=== PATIENT | male | born 1960 | race Caucasian/White ===

== ENCOUNTER 2017-06-08 13:48 | Emergency (ER) | payer MEDICARE ==
[2017-06-08] MEDS ORDERED: Ketorolac Tromethamine 30 MG/ML VIAL ONE (14:27)
== END 2017-06-08 14:55 | disposition home or self-care (01) ==
LOC: NAV ERS 13:48
DX: S16.1XXA Strain of muscle, fascia and tendon at neck level, initial encounter (principal); R03.0 Elevated blood-pressure reading, without diagnosis of hypertension; I25.2 Old myocardial infarction; Z87.891 Personal history of nicotine dependence; X58.XXXA Exposure to other specified factors, initial encounter
CPT/HCPCS: 96372; J1885

== ENCOUNTER 2018-08-21 10:25 | Outpatient (CLI) | payer MEDICARE ==
--- NOTE | 2018-08-21 11:59 | RAD ---
LUMBOSACRAL SPINE THREE VIEWS: HISTORY: Low back pain and right-sided sciatica. COMPARISON: None. FINDINGS: Three views of the lumbosacral spine show normal height and alignment of the vertebral bodies and int ervertebral disks without fracture or subluxation. Moderate osteophytes are seen throughout the lumb ar spine. Posterior facet arthrosis is seen in the lower lumbosacral spine. Vascular calcifications are seen in the aorta. IMPRESSION: Moderate degenerative changes of the lumbar spine without acute osseous abnormality. POS: [facility]
--- NOTE | 2018-08-21 12:12 | RAD ---
SACRUM AND COCCYX 3 VIEWS: Date: 08/21/18 HISTORY: Sacral pain. FINDINGS: Sacral ala intact. Mild osteophytosis of the sacroiliac joints. No aggressive osseous erosions or fra ctures are apparent. IMPRESSION: Degenerative changes lumbar spine and sacroiliac joints. No acute osseous abnormalities are demonstra marge. POS: [facility]
== END 2018-08-21 10:26 | disposition home or self-care (01) ==
LOC: NAV SJFMSP 10:25 → NAV RAD 10:26
PROVIDERS: ATTEND Nurse Practitioner Adult Health
DX: M54.41 Lumbago with sciatica, right side (principal); M47.816 Spondylosis without myelopathy or radiculopathy, lumbar region; M53.3 Sacrococcygeal disorders, not elsewhere classified
CPT/HCPCS: 72100; 72220

== ENCOUNTER 2019-06-10 08:34 | Emergency (ER) | payer MEDICARE ==
[2019-06-10] MEDS ORDERED: methylPREDNISolone Sod Succ/PF 125 MG/2 ML VIAL ONE (09:16)
== END 2019-06-10 09:35 | disposition home or self-care (01) ==
LOC: NAV ERS 08:34
DX: M54.12 Radiculopathy, cervical region (principal); E78.5 Hyperlipidemia, unspecified; I49.9 Cardiac arrhythmia, unspecified; I25.2 Old myocardial infarction; Z87.891 Personal history of nicotine dependence; Z79.82 Long term (current) use of aspirin; Z79.899 Other long term (current) drug therapy
CPT/HCPCS: 96372; 99283; J2930

== ENCOUNTER 2020-11-18 11:23 | Outpatient (CLI) | payer MEDICARE | END 2020-11-18 11:24 | disposition home or self-care (01) | LOC: NAV RAD 11:23 | PROVIDERS: ATTEND Family Medicine | DX: M72.2 Plantar fascial fibromatosis (principal); M19.071 Primary osteoarthritis, right ankle and foot; Z98.890 Other specified postprocedural states ==

== ENCOUNTER 2021-11-23 08:47 | Inpatient (IN) | payer MEDICARE ==
[2021-11-23 09:58] LABS: #Basophils 0.1 thou/uL (0.0-0.2); #Eosinphils 0.2 thou/uL (0.0-0.7); #Lymphocytes 1.4 thou/uL (1.20-3.40); %Basophils 1.4 % (0.0-1.0); %Eosinophils 2.2 % (0.0-10.0); %Lymphocytes 14.6 % (21.0-51.0); %Neutrophils 71.9 % (42.0-75.0); Hemoglobin 12.7 g/dL (14.0-18.0); Mean Corpuscular HGB CONC 31.3 g/dL (32.0-36.0); Mean Corpuscular Hemoglobin 28.6 pg (27.0-31.0); Mean Corpuscular Volume 91.3 fL (78.0-98.0); Mean Platelet Volume 8.4 fL (7.4-10.4); Platelet Count 242 thou/uL (130-400); RBC Distribution Width 13.4 % (11.5-14.5); Red Blood Cell (RBC) Count 4.44 mill/uL (4.70-6.10); White Blood Cell (WBC) Count 9.8 thou/uL (4.8-10.8)
[2021-11-23 10:10] LABS: ALT (SGPT) 27 U/L (8-55); AST (SGOT) 22 U/L (5-34); Alkaline Phosphatase 69 U/L (40-110); Anion Gap 17 mmol/L (10-20); BUN (Urea Nitrogen) 14 mg/dL (8.4-25.7); Bilirubin, Total 0.5 mg/dL (0.2-1.2); Calc. Creatinine Clearance 0 mL/min (70-130); Calcium 9.6 mg/dL (7.8-10.44); Carbon Dioxide 21 mmol/L (23-31); Chloride 106 mmol/L (98-107); Globulin 3.5 g/dL (2.4-3.5); Glucose 96 mg/dL (80-115); Potassium 4.4 mmol/L (3.5-5.1); Protein, Total 7.5 g/dL (5.8-8.1); Sodium 140 mmol/L (136-145)
[2021-11-23] MEDS ORDERED: Cefepime 2 GM VIAL ONE (11:20)
[2021-11-23] MEDS ORDERED: Sodium Chloride 0.9% 100 ML ONE (11:21)
[2021-11-23] MEDS ORDERED: Sodium Chloride 0.9% 500 ML ONE (11:21)
[2021-11-23 12:59] LABS: SARS-CoV-2 NAA Rapid Test Not Detected (NotDetected)
[2021-11-23 14:29] VITALS: BMI 43.4
[2021-11-23] MEDS ORDERED: Acetaminophen 325 MG TAB PO PRN (15:15)
[2021-11-23] MEDS ORDERED: Ondansetron PF 4 MG/2 ML Vial IVP PRN (15:15)
[2021-11-23] MEDS ORDERED: Ondansetron ODT 4 MG TAB SL PRN (15:15)
[2021-11-23] MEDS ORDERED: Bisacodyl 5 MG TAB PO PRN (15:53)
[2021-11-23] MEDS ORDERED: Calcium Carbonate 500 MG ChewTAB PO PRN (15:53)
[2021-11-23] MEDS ORDERED: Loperamide HCl 2 MG CAP PO PRN ×2 (15:53)
[2021-11-23] MEDS ORDERED: Guaifenesin DM 100-10/5 ML UDCUP PO PRN (15:53)
[2021-11-23] MEDS ORDERED: Bisacodyl 10 MG SUPP PR PRN (15:53)
[2021-11-23] MEDS ORDERED: Senokot S 8.6-50 MG TAB PO PRN (15:53)
[2021-11-23] MEDS ORDERED: Sodium Chloride 0.65% Nasal 44 ML BOT EA NARE PRN (15:56)
[2021-11-23] MEDS ORDERED: hydrOXYzine 25 MG TAB PO PRN (15:56)
[2021-11-23] MEDS ORDERED: Cepastat Lozenges 1 LOZ PO PRN (15:56)
[2021-11-23] MEDS ORDERED: Ventolin HFA Inhaler 60 PUFF INHALER INH PRN (15:58)
[2021-11-23] MEDS: ALPRAZolam 0.25 MG TAB PO SCH (20:13)
[2021-11-23] MEDS: HYDROcodone/Acetaminophen 5/325 mg Tablet PO PRN ×2 (20:13→23:52)
[2021-11-23] MEDS: Famotidine 20 MG TAB PO SCH (20:13)
[2021-11-23] MEDS: Vancomycin HCl 1 GM in Sodium Chloride 0.9% 250 ML 250 ML IVPB SCH (20:59)
[2021-11-23] MEDS: Vancomycin HCl 750 MG in Sodium Chloride 0.9% 250 ML 250 ML IVPB SCH (22:06)
[2021-11-23] MEDS ORDERED: Sodium Chloride 0.9% 0 ML ONE (23:09)
[2021-11-23] MEDS ORDERED: Sodium Chloride 0.9% 20 ML ONE (23:10)
[2021-11-23] MEDS: Cefepime 2 GM in Sodium Chloride 0.9% 100 ML IVPB SCH (23:17)
[2021-11-23] MEDS: Acetaminophen 325 MG TAB PO PRN (23:18)
[2021-11-24] MEDS: Acetaminophen 325 MG TAB PO PRN ×2 (03:59→14:27)
[2021-11-24 06:05] LABS: #Basophils 0.1 thou/uL (0.0-0.2); #Eosinphils 0.3 thou/uL (0.0-0.7); #Lymphocytes 1.4 thou/uL (1.20-3.40); #Monocytes 0.8 thou/uL (0.11-0.59); #Neutrophils 6.1 thou/uL (1.40-6.50); %Basophils 1.3 % (0.0-1.0); %Eosinophils 3.6 % (0.0-10.0); %Lymphocytes 16.2 % (21.0-51.0); %Monocytes 8.7 % (0.0-10.0); %Neutrophils 70.2 % (42.0-75.0); Hemoglobin 12.3 g/dL (14.0-18.0); Mean Corpuscular HGB CONC 31.3 g/dL (32.0-36.0); Mean Corpuscular Hemoglobin 28.7 pg (27.0-31.0); Mean Corpuscular Volume 91.8 fL (78.0-98.0); Mean Platelet Volume 8.3 fL (7.4-10.4); Platelet Count 241 thou/uL (130-400); RBC Distribution Width 13.9 % (11.5-14.5); Red Blood Cell (RBC) Count 4.28 mill/uL (4.70-6.10); White Blood Cell (WBC) Count 8.7 thou/uL (4.8-10.8)
[2021-11-24 06:09] LABS: ALT (SGPT) 25 U/L (8-55); AST (SGOT) 18 U/L (5-34); Albumin 3.7 g/dL (3.4-4.8); Alkaline Phosphatase 61 U/L (40-110); Anion Gap 15 mmol/L (10-20); BUN (Urea Nitrogen) 15 mg/dL (8.4-25.7); Bilirubin, Total 0.4 mg/dL (0.2-1.2); Calc. Creatinine Clearance 176 mL/min (70-130); Calcium 9.2 mg/dL (7.8-10.44); Carbon Dioxide 25 mmol/L (23-31); Chloride 106 mmol/L (98-107); Globulin 3.2 g/dL (2.4-3.5); Glucose 95 mg/dL (80-115); Potassium 4.5 mmol/L (3.5-5.1); Protein, Total 6.9 g/dL (5.8-8.1); Sodium 141 mmol/L (136-145)
[2021-11-24] MEDS: HYDROcodone/Acetaminophen 5/325 mg Tablet PO PRN ×3 (08:25→20:18)
[2021-11-24] MEDS: Ezetimibe 10 MG TAB PO SCH (08:30)
[2021-11-24] MEDS: Famotidine 20 MG TAB PO SCH ×2 (08:30→20:28)
[2021-11-24] MEDS: Ascorbic Acid 500 mg Chewable Tablet PO SCH (08:30)
[2021-11-24] MEDS: Cholecalciferol 1,000 UNITS (25 MCG) TAB PO SCH (08:30)
[2021-11-24] MEDS: Enoxaparin Sodium 40 MG/0.4 ML SYRINGE SC SCH (08:33)
[2021-11-24] MEDS: Vancomycin HCl 1 GM in Sodium Chloride 0.9% 250 ML 250 ML IVPB SCH ×2 (09:46→21:54)
[2021-11-24] MEDS: Vancomycin HCl 750 MG in Sodium Chloride 0.9% 250 ML 250 ML IVPB SCH ×2 (11:02→22:44)
[2021-11-24] MEDS: Cefepime 2 GM in Sodium Chloride 0.9% 100 ML IVPB SCH ×2 (12:10→23:53)
[2021-11-24] MEDS: ALPRAZolam 0.25 MG TAB PO SCH (20:16)
[2021-11-24] MEDS ORDERED: Famotidine 20 MG TAB ONE (20:45)
[2021-11-24 21:45] LABS: Vancomycin, Trough 17.7 ug/mL
[2021-11-25 06:33] LABS: ALT (SGPT) 27 U/L (8-55); AST (SGOT) 19 U/L (5-34); Alkaline Phosphatase 66 U/L (40-110); Anion Gap 16 mmol/L (10-20); BUN (Urea Nitrogen) 13 mg/dL (8.4-25.7); Bilirubin, Total 0.4 mg/dL (0.2-1.2); Calc. Creatinine Clearance 170 mL/min (70-130); Calcium 9.8 mg/dL (7.8-10.44); Carbon Dioxide 26 mmol/L (23-31); Chloride 104 mmol/L (98-107); Globulin 3.7 g/dL (2.4-3.5); Glucose 98 mg/dL (80-115); Potassium 4.4 mmol/L (3.5-5.1); Protein, Total 7.7 g/dL (5.8-8.1)
[2021-11-25 06:47] LABS: #Basophils 0.1 thou/uL (0.0-0.2); #Eosinphils 0.4 thou/uL (0.0-0.7); #Lymphocytes 1.5 thou/uL (1.20-3.40); #Monocytes 0.7 thou/uL (0.11-0.59); #Neutrophils 6.7 thou/uL (1.40-6.50); %Basophils 1.6 % (0.0-1.0); %Eosinophils 3.8 % (0.0-10.0); %Lymphocytes 16.2 % (21.0-51.0); %Monocytes 7.2 % (0.0-10.0); %Neutrophils 71.3 % (42.0-75.0); Hemoglobin 13.4 g/dL (14.0-18.0); Mean Corpuscular HGB CONC 30.8 g/dL (32.0-36.0); Mean Corpuscular Hemoglobin 28.4 pg (27.0-31.0); Platelet Count 299 thou/uL (130-400); RBC Distribution Width 13.7 % (11.5-14.5); Red Blood Cell (RBC) Count 4.74 mill/uL (4.70-6.10); White Blood Cell (WBC) Count 9.4 thou/uL (4.8-10.8)
[2021-11-25 06:50] LABS: Sodium 142 mmol/L (136-145)
[2021-11-25] MEDS: Enoxaparin Sodium 40 MG/0.4 ML SYRINGE SC SCH (08:06)
[2021-11-25] MEDS: Ascorbic Acid 500 mg Chewable Tablet PO SCH (08:07)
[2021-11-25] MEDS: HYDROcodone/Acetaminophen 5/325 mg Tablet PO PRN ×4 (08:07→21:19)
[2021-11-25] MEDS: Ezetimibe 10 MG TAB PO SCH (08:07)
[2021-11-25] MEDS: Cholecalciferol 1,000 UNITS (25 MCG) TAB PO SCH (08:07)
[2021-11-25] MEDS: Famotidine 20 MG TAB PO SCH ×2 (08:08→20:40)
[2021-11-25] MEDS: Vancomycin HCl 1 GM in Sodium Chloride 0.9% 250 ML 250 ML IVPB SCH ×2 (08:48→21:19)
[2021-11-25] MEDS: Vancomycin HCl 750 MG in Sodium Chloride 0.9% 250 ML 250 ML IVPB SCH ×2 (09:52→21:20)
[2021-11-25] MEDS: Cefepime 2 GM in Sodium Chloride 0.9% 100 ML IVPB SCH ×2 (10:51→23:33)
[2021-11-25] MEDS: ALPRAZolam 0.25 MG TAB PO SCH (20:41)
[2021-11-26] MEDS: HYDROcodone/Acetaminophen 5/325 mg Tablet PO PRN ×3 (04:54→20:23)
[2021-11-26 06:06] LABS: #Basophils 0.1 thou/uL (0.0-0.2); #Eosinphils 0.3 thou/uL (0.0-0.7); #Lymphocytes 1.2 thou/uL (1.20-3.40); #Monocytes 0.7 thou/uL (0.11-0.59); #Neutrophils 6.6 thou/uL (1.40-6.50); %Basophils 1.2 % (0.0-1.0); %Eosinophils 3.4 % (0.0-10.0); %Lymphocytes 13.4 % (21.0-51.0); %Monocytes 7.5 % (0.0-10.0); %Neutrophils 74.5 % (42.0-75.0); ALT (SGPT) 24 U/L (8-55); AST (SGOT) 19 U/L (5-34); Albumin 3.9 g/dL (3.4-4.8); Alkaline Phosphatase 62 U/L (40-110); Anion Gap 15 mmol/L (10-20); BUN (Urea Nitrogen) 15 mg/dL (8.4-25.7); Bilirubin, Total 0.4 mg/dL (0.2-1.2); Calc. Creatinine Clearance 176 mL/min (70-130); Calcium 9.3 mg/dL (7.8-10.44); Carbon Dioxide 26 mmol/L (23-31); Chloride 105 mmol/L (98-107); Globulin 3.6 g/dL (2.4-3.5); Glucose 100 mg/dL (80-115); Hemoglobin 13.1 g/dL (14.0-18.0); Mean Corpuscular HGB CONC 32.1 g/dL (32.0-36.0); Mean Corpuscular Volume 90.3 fL (78.0-98.0); Mean Platelet Volume 7.9 fL (7.4-10.4); Platelet Count 303 thou/uL (130-400); Potassium 4.6 mmol/L (3.5-5.1); Protein, Total 7.5 g/dL (5.8-8.1); RBC Distribution Width 13.3 % (11.5-14.5); Sodium 141 mmol/L (136-145); White Blood Cell (WBC) Count 8.8 thou/uL (4.8-10.8)
[2021-11-26] MEDS: Ezetimibe 10 MG TAB PO SCH (08:58)
[2021-11-26] MEDS: Cholecalciferol 1,000 UNITS (25 MCG) TAB PO SCH (08:58)
[2021-11-26] MEDS: Enoxaparin Sodium 40 MG/0.4 ML SYRINGE SC SCH (08:58)
[2021-11-26] MEDS: Ascorbic Acid 500 mg Chewable Tablet PO SCH (08:58)
[2021-11-26] MEDS: Famotidine 20 MG TAB PO SCH ×2 (08:59→20:20)
[2021-11-26] MEDS: Clindamycin 150 MG CAP PO SCH ×3 (09:23→20:20)
[2021-11-26] MEDS ORDERED: Albuterol 200 PUFF (6.7GM INHALER) INH PRN (12:00)
[2021-11-26] MEDS: ALPRAZolam 0.25 MG TAB PO SCH (20:20)
[2021-11-27] MEDS: HYDROcodone/Acetaminophen 5/325 mg Tablet PO PRN ×2 (03:35→08:34)
[2021-11-27] MEDS: Clindamycin 150 MG CAP PO SCH ×2 (03:35→08:32)
[2021-11-27 07:38] VITALS: BP 151/68; TEMP 96.9
[2021-11-27] MEDS: Enoxaparin Sodium 40 MG/0.4 ML SYRINGE SC SCH (08:31)
[2021-11-27] MEDS: Ezetimibe 10 MG TAB PO SCH (08:32)
[2021-11-27] MEDS: Famotidine 20 MG TAB PO SCH (08:32)
[2021-11-27] MEDS: Ascorbic Acid 500 mg Chewable Tablet PO SCH (08:32)
[2021-11-27] MEDS: Cholecalciferol 1,000 UNITS (25 MCG) TAB PO SCH (08:32)
== END 2021-11-27 11:15 | disposition home or self-care (01) | DRG 603 ==
LOC: NAV ERS 08:47 → NAV ACUTE 13:24 → UNDOADMIN 13:24
PROVIDERS: ADMIT Family Medicine; ATTEND Family Medicine
DX: L03.116 Cellulitis of left lower limb (principal); I10 Essential (primary) hypertension; G89.29 Other chronic pain; M54.9 Dorsalgia, unspecified; E78.2 Mixed hyperlipidemia; Z20.822 Contact with and (suspected) exposure to COVID-19; Z98.890 Other specified postprocedural states; I25.2 Old myocardial infarction; Z95.5 Presence of coronary angioplasty implant and graft; Z98.42 Cataract extraction status, left eye; Z98.41 Cataract extraction status, right eye; Z87.891 Personal history of nicotine dependence; Z88.8 Allergy status to other drugs, medicaments and biological substances; Z88.1 Allergy status to other antibiotic agents; Z88.0 Allergy status to penicillin; Z79.899 Other long term (current) drug therapy; Z79.82 Long term (current) use of aspirin
CPT/HCPCS: 36415; 80053; 80202; 83605; 85025; 85652; 86140; 87040; 96365; 96367; 97602; J0692; J1650; J3370; J3490; J7030; J7050; U0002

== ENCOUNTER 2021-12-06 15:51 | Outpatient (CLI) | payer MEDICARE | END 2021-12-06 15:52 | disposition home or self-care (01) | LOC: NAV RAD 15:51 | PROVIDERS: ATTEND Family Medicine | DX: S81.802A Unspecified open wound, left lower leg, initial encounter (principal); L03.116 Cellulitis of left lower limb; M79.89 Other specified soft tissue disorders ==

== ENCOUNTER 2022-01-12 14:17 | Outpatient (CLI) | payer MEDICARE | END 2022-01-12 14:18 | disposition home or self-care (01) | LOC: NAV RAD 14:17 | PROVIDERS: ATTEND Family Medicine | DX: L03.032 Cellulitis of left toe (principal); M19.072 Primary osteoarthritis, left ankle and foot; M25.775 Osteophyte, left foot; M89.9 Disorder of bone, unspecified; M25.872 Other specified joint disorders, left ankle and foot; Z98.890 Other specified postprocedural states ==

== ENCOUNTER 2022-03-16 12:09 | Outpatient (CLI) | payer MEDICARE | END 2022-03-16 12:10 | disposition home or self-care (01) | LOC: NAV RAD 12:09 | PROVIDERS: ATTEND Family Medicine | DX: M54.50 Low back pain, unspecified (principal); M54.6 Pain in thoracic spine; M47.816 Spondylosis without myelopathy or radiculopathy, lumbar region; M47.814 Spondylosis without myelopathy or radiculopathy, thoracic region | CPT/HCPCS: 72072; 72100 ==

== ENCOUNTER 2022-07-07 08:46 | Outpatient (CLI) | payer OTHER | END 2022-07-07 08:47 | disposition home or self-care (01) | LOC: NAV RAD 08:46 | PROVIDERS: ATTEND Family Medicine | DX: J18.9 Pneumonia, unspecified organism (principal) | CPT/HCPCS: 71046 ==

== ENCOUNTER 2022-11-20 15:49 | Emergency (ER) | payer OTHER ==
[2022-11-20] MEDS ORDERED: Lidocaine 1% w/Epinephrine 1:100K 20 ML VIAL ONE (16:20)
[2022-11-20] MEDS ORDERED: Ibuprofen 200 MG TAB ONE (16:20)
[2022-11-20] MEDS ORDERED: Bacitracin 1 PK ONE (17:01)
[2022-11-20] MEDS ORDERED: Boostrix 0.5 ML (Tdap) VIAL (>/=7 yrs of age) ONE (17:01)
== END 2022-11-20 17:14 | disposition home or self-care (01) ==
LOC: NAV ERS 15:49
DX: S81.812A Laceration without foreign body, left lower leg, initial encounter (principal); E78.2 Mixed hyperlipidemia; I10 Essential (primary) hypertension; Z87.891 Personal history of nicotine dependence; Z79.899 Other long term (current) drug therapy; Z79.82 Long term (current) use of aspirin; Z23 Encounter for immunization; W01.10XA Fall on same level from slipping, tripping and stumbling with subsequent striking against unspecified object, initial encounter
CPT/HCPCS: 12032; 90471; 90715

== ENCOUNTER 2023-10-26 12:33 | Outpatient (CLI) | payer OTHER | END 2023-10-26 12:34 | disposition home or self-care (01) | LOC: NAV RAD 12:33 | PROVIDERS: ATTEND Family Medicine | DX: R05.3 Chronic cough (principal); J98.4 Other disorders of lung | CPT/HCPCS: 71046 ==

== ENCOUNTER 2024-08-16 10:14 | Outpatient (CLI) | payer OTHER | END 2024-08-16 10:15 | disposition home or self-care (01) | LOC: NAV RAD 10:14 | PROVIDERS: ATTEND Family Medicine | DX: M25.551 Pain in right hip (principal); M25.552 Pain in left hip; M47.816 Spondylosis without myelopathy or radiculopathy, lumbar region; M43.16 Spondylolisthesis, lumbar region; M16.0 Bilateral primary osteoarthritis of hip | CPT/HCPCS: 72100; 73522 ==

== ENCOUNTER 2025-02-21 10:16 | Emergency (ER) | payer OTHER ==
[2025-02-21] MEDS ORDERED: Ketorolac Tromethamine 30 MG (1 mL) VIAL ONE (11:00)
== END 2025-02-21 11:10 | disposition home or self-care (01) ==
LOC: NAV ERS 10:16
DX: M54.2 Cervicalgia (principal); I25.2 Old myocardial infarction; Z87.891 Personal history of nicotine dependence; Z79.82 Long term (current) use of aspirin
CPT/HCPCS: 96372; 99283; J1885

== ENCOUNTER 2025-03-17 05:46 | Emergency (ER) | payer OTHER ==
[2025-03-17] MEDS ORDERED: Ibuprofen 200 MG TAB ONE (06:56)
== END 2025-03-17 07:20 | disposition home or self-care (01) ==
LOC: NAV ERS 05:46
DX: S50.01XA Contusion of right elbow, initial encounter (principal); Z87.891 Personal history of nicotine dependence; W01.198A Fall on same level from slipping, tripping and stumbling with subsequent striking against other object, initial encounter
CPT/HCPCS: 99283

== ENCOUNTER 2025-03-21 11:59 | Emergency (ER) | payer OTHER ==
[2025-03-21 13:04] LABS: #Basophils 0.1 thou/uL (0.0-0.2); #Eosinophils 0.2 thou/uL (0.0-0.7); #Lymphocytes 1.3 thou/uL (1.20-3.40); #Monocytes 1.0 thou/uL (0.11-0.59); #Neutrophils 7.9 thou/uL (1.40-6.50); %Basophils 1.2 % (0.0-1.0); %Eosinophils 2.1 % (0.0-10.0); %Lymphocytes 12.7 % (21.0-51.0); %Monocytes 9.3 % (0.0-10.0); %Neutrophils 74.6 % (42.0-75.0); Hematocrit 38.0 % (42.0-52.0); Hemoglobin 13.3 g/dL (14.0-18.0); Mean Corpuscular Hemoglobin 28.2 pg (27.0-31.0); Mean Corpuscular Volume 80.6 fl (78.0-98.0); Platelet Count 333 10x3/uL (130-400); Red Blood Cell (RBC) Count 4.72 mill/uL (4.70-6.10); White Blood Cell (WBC) Count 10.5 10x3/uL (4.8-10.8)
[2025-03-21] MEDS ORDERED: Cephalexin 500 MG CAP ONE (13:28)
[2025-03-21] MEDS ORDERED: Sulfameth/Trimethoprim DS 800-160mg TAB ONE (13:28)
== END 2025-03-21 13:46 | disposition home or self-care (01) ==
LOC: NAV ERS 11:59
DX: L03.113 Cellulitis of right upper limb (principal); I25.2 Old myocardial infarction; Z95.5 Presence of coronary angioplasty implant and graft; Z87.891 Personal history of nicotine dependence; Z79.82 Long term (current) use of aspirin; Z79.51 Long term (current) use of inhaled steroids; Z79.899 Other long term (current) drug therapy
CPT/HCPCS: 36415; 85025; 99283